=== PATIENT | female | born 2000 | race Two or more races ===

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

== ENCOUNTER 2020-04-19 13:57 | Emergency (ER) | payer OTHER ==
[~2020-04-19] VITALS: Ht 167.6 cm; Wt 60.3 kg
== END 2020-04-19 19:15 | disposition home or self-care (01) ==
LOC: ER 13:57 → EMR PED 14:17
DX: U07.1 COVID-19 (principal); J06.9 Acute upper respiratory infection, unspecified

== ENCOUNTER 2020-04-30 12:02 | Outpatient (CLI) | payer OTHER | END 2020-04-30 16:43 | disposition home or self-care (01) | LOC: RAD 12:02 | PROVIDERS: ATTEND Orthopaedic Surgery | DX: M54.5 Low back pain (principal) ==

== ENCOUNTER 2020-05-09 13:49 | Outpatient (CLI) | payer OTHER | END 2020-05-09 14:59 | disposition home or self-care (01) | LOC: MRI 13:49 | PROVIDERS: ATTEND Orthopaedic Surgery | DX: M54.5 Low back pain (principal) | CPT/HCPCS: 72148 ==

== ENCOUNTER 2022-02-05 12:18 | Outpatient (CLI) | payer OTHER | END 2022-02-05 12:21 | disposition home or self-care (01) | LOC: SONOGRAMA 12:18 | PROVIDERS: ATTEND Obstetrics & Gynecology | DX: N93.9 Abnormal uterine and vaginal bleeding, unspecified (principal) ==

== ENCOUNTER 2022-03-22 11:24 | Outpatient (CLI) | payer OTHER | END 2022-03-22 11:25 | disposition home or self-care (01) | LOC: LAB 11:24 | PROVIDERS: ATTEND Internal Medicine Nephrology | DX: I10 Essential (primary) hypertension (principal); N18.2 Chronic kidney disease, stage 2 (mild); R80.9 Proteinuria, unspecified; M32.10 Systemic lupus erythematosus, organ or system involvement unspecified; N28.9 Disorder of kidney and ureter, unspecified ==

== ENCOUNTER 2022-04-19 15:29 | Outpatient (CLI) | payer OTHER | END 2022-04-19 15:34 | disposition home or self-care (01) | LOC: LAB 15:29 | PROVIDERS: ATTEND Orthopaedic Surgery | DX: E56.1 Deficiency of vitamin K (principal) ==

== ENCOUNTER 2022-04-27 08:33 | Outpatient (CLI) | payer OTHER | END 2022-04-27 09:14 | disposition home or self-care (01) | LOC: MRI 08:33 | PROVIDERS: ATTEND Orthopaedic Surgery | DX: S93.491D Sprain of other ligament of right ankle, subsequent encounter (principal); M76.71 Peroneal tendinitis, right leg | CPT/HCPCS: 73718 ==

== ENCOUNTER → 2022-05-26 07:59 | Outpatient (CLI) | payer OTHER | END | disposition home or self-care (01) | LOC: LAB 07:59 | PROVIDERS: ATTEND Internal Medicine Nephrology | DX: M06.4 Inflammatory polyarthropathy (principal); M50.90 Cervical disc disorder, unspecified, unspecified cervical region; M35.9 Systemic involvement of connective tissue, unspecified; M32.14 Glomerular disease in systemic lupus erythematosus; N28.9 Disorder of kidney and ureter, unspecified; M32.19 Other organ or system involvement in systemic lupus erythematosus; D51.3 Other dietary vitamin B12 deficiency anemia; E55.9 Vitamin D deficiency, unspecified; E78.5 Hyperlipidemia, unspecified; D50.9 Iron deficiency anemia, unspecified; N18.2 Chronic kidney disease, stage 2 (mild); R80.9 Proteinuria, unspecified; C78.5 Secondary malignant neoplasm of large intestine and rectum; Z12.11 Encounter for screening for malignant neoplasm of colon; D64.9 Anemia, unspecified; E03.8 Other specified hypothyroidism; N95.1 Menopausal and female climacteric states; I10 Essential (primary) hypertension; C51.9 Malignant neoplasm of vulva, unspecified; N30.00 Acute cystitis without hematuria; E83.51 Hypocalcemia; A64 Unspecified sexually transmitted disease; N39.0 Urinary tract infection, site not specified; R97.8 Other abnormal tumor markers; R79.89 Other specified abnormal findings of blood chemistry; A60.9 Anogenital herpesviral infection, unspecified ==

== ENCOUNTER → 2022-08-30 11:38 | Outpatient (CLI) | payer OTHER | END | disposition home or self-care (01) | LOC: LAB 11:38 | PROVIDERS: ATTEND Specialist | DX: I10 Essential (primary) hypertension (principal); N18.9 Chronic kidney disease, unspecified; M06.4 Inflammatory polyarthropathy; M50.90 Cervical disc disorder, unspecified, unspecified cervical region; M35.9 Systemic involvement of connective tissue, unspecified ==

== ENCOUNTER 2022-12-17 10:38 | Outpatient (CLI) | payer OTHER ==
[2022-12-17 11:46] LABS: HEMATOCRIT 31.5 % (36.0-45.00); HEMOGLOBIN 10.7 g/dL (12.0-15.00); MEAN CELL VOLUME 91.1 fL (80.00-100.00); MEAN CORPUSCULAR HEMOGLOBIN 30.8 pg (27.00-32.0); MEAN CORPUSCULAR HGB CONC 33.8 g/dl (32.0-36.0); PLATELET COUNT 379 K/uL (150-450); RED BLOOD COUNT 3.46 M/uL (4.00-6.00); RED CELL DISTRIBUTION WIDTH 13.9 % (11.5-14.5)
[2022-12-17 11:58] LABS: ERYTHROCYTE SEDIMENTATION RATE 28 mm/hr
[2022-12-17 12:21] LABS: ALBUMIN 1.7 gm/dL (3.4-5.0); ALKALINE PHOSPHATASE 51 U/L (50-136); ALT/SGPT 21 U/L (12-78); ANION GAP 5 (10.0-20.0); AST/SGOT 19 U/L (15-37); BILIRUBIN TOTAL < 0.10 mg/dL (0.3-1.2); BLOOD UREA NITROGEN 12 mg/dL (7-18); BUN CREA RATIO 27 (7.0-25.0); C-REACTIVE PROTEIN < 0.29 MG/DL (0.00-0.29); CALCIUM 7.6 mg/dL (8.5-10.1); CARBON DIOXIDE 33 mEq/L (21-32); CHLORIDE 110 mmol/L (98-107); CHOL HDL RATIO 2.8 (0-5.0); CHOLESTEROL 182 mg/dL (0-200); CREATININE SERUM 0.45 mg/dL (0.55-1.02); FERRITIN 23.7 NG/ML (8-252); GFR 174.23; GLOBULINA 2.7 G/DL (2.4-3.5); GLUCOSE FASTING 86 mg/dL (65-100); HDL 64 mg/dl (40-60); LDL 97 mg/dl (0-130); OSMOLALITY SERUM 286 MOSM/KG (275-295); POTASSIUM 3.53 mEq/L (3.5-5.1); SODIUM 144 mmol/L (136-145); TOTAL IRON BINDING CAPACITY 234 ug/dl (250-450); TOTAL PROTEIN 4.4 gm/dL (6.4-8.2); TRIGLYCERIDES 107 mg/dL (0-150); VLDL 21 (0-39)
[2022-12-17 12:21] LABS: PH,URINE 5.5 (5.0-8.0); URINE APPEARANCE Cloudy; URINE BILIRRUBIN Negative (NEGATIVE); URINE BLOOD Small; URINE COLOR Yellow; URINE GLUCOSE Negative (NEGATIVE); URINE LEUKOCYTE Negative; URINE NITRATE Negative; URINE UROBILINOGEN 0.2 E.U./dl
[2022-12-17 12:26] LABS: URINE BACTERIA 2531.2 uL (0.0-1933); URINE EPITHELIAL CELLS 63.3 uL (0.0-38.8); URINE RBC 43.6 uL (0.0-20.8); URINE WBC 46.9 uL (0.0-23.2)
[2022-12-17 12:40] LABS: VITAMIN D3 25 HYDROXY 30.07 ng/ml (30-120)
[2022-12-17 12:50] LABS: URINE PROTEIN 300 (NEGATIVE)
== END 2022-12-17 10:45 | disposition home or self-care (01) ==
LOC: LAB 10:38
PROVIDERS: ATTEND Specialist
DX: M32.10 Systemic lupus erythematosus, organ or system involvement unspecified (principal); N28.9 Disorder of kidney and ureter, unspecified; D51.3 Other dietary vitamin B12 deficiency anemia; E03.9 Hypothyroidism, unspecified; E55.9 Vitamin D deficiency, unspecified; E78.5 Hyperlipidemia, unspecified; Z91.040 Latex allergy status

== ENCOUNTER 2023-03-04 10:26 | Outpatient (CLI) | payer OTHER ==
[2023-03-04 11:42] LABS: PH,URINE 6.5 (5.0-8.0); URINE APPEARANCE Clear; URINE BILIRRUBIN Negative (NEGATIVE); URINE BLOOD Trace; URINE COLOR Yellow; URINE GLUCOSE Negative (NEGATIVE); URINE LEUKOCYTE Negative; URINE NITRATE Negative
[2023-03-04 11:46] LABS: URINE BACTERIA 483.8 uL (0.0-1933); URINE EPITHELIAL CELLS 16.6 uL (0.0-38.8); URINE RBC 12.6 uL (0.0-20.8); URINE WBC 14.2 uL (0.0-23.2)
[2023-03-04 11:46] LABS: HEMATOCRIT 29.1 % (36.0-45.00); MEAN CELL VOLUME 89.6 fL (80.00-100.00); MEAN CORPUSCULAR HGB CONC 34.6 g/dl (32.0-36.0); PLATELET COUNT 333 K/uL (150-450); RED BLOOD COUNT 3.25 M/uL (4.00-6.00); RED CELL DISTRIBUTION WIDTH 13.8 % (11.5-14.5)
[2023-03-04 11:47] LABS: HEMOGLOBIN 10.1 g/dL (12.0-15.00)
[2023-03-04 11:51] LABS: ERYTHROCYTE SEDIMENTATION RATE 14 mm/hr
[2023-03-04 11:52] LABS: URINE PROTEIN 300 (NEGATIVE)
[2023-03-04 12:15] LABS: ALBUMIN 2.1 gm/dL (3.4-5.0); ALKALINE PHOSPHATASE 43 U/L (50-136); ALT/SGPT 20 U/L (12-78); ANION GAP 6 (10.0-20.0); AST/SGOT 21 U/L (15-37); BILIRUBIN TOTAL 0.19 mg/dL (0.3-1.2); BLOOD UREA NITROGEN 15 mg/dL (7-18); BUN CREA RATIO 33 (7.0-25.0); CALCIUM 7.9 mg/dL (8.5-10.1); CARBON DIOXIDE 28 mEq/L (21-32); CHLORIDE 112 mmol/L (98-107); CHOL HDL RATIO 2.4 (0-5.0); CHOLESTEROL 135 mg/dL (0-200); CREATININE SERUM 0.45 mg/dL (0.55-1.02); GFR 174.23; GLOBULINA 2.5 G/DL (2.4-3.5); GLUCOSE FASTING 85 mg/dL (65-100); HDL 57 mg/dl (40-60); LDL 68 mg/dl (0-130); OSMOLALITY SERUM 283 MOSM/KG (275-295); PHOSPHOROUS 3.7 mg/dL (2.5-4.9); POTASSIUM 3.82 mEq/L (3.5-5.1); SODIUM 142 mmol/L (136-145); TOTAL IRON BINDING CAPACITY 272 ug/dl (250-450); TOTAL PROTEIN 4.6 gm/dL (6.4-8.2); TRIGLYCERIDES 51 mg/dL (0-150); VLDL 10 (0-39)
[2023-03-04 12:28] LABS: C-REACTIVE PROTEIN < 0.29 MG/DL (0.00-0.29)
[2023-03-04 12:32] LABS: URIC ACID 4.6 mg/dL (2.5-7.5)
== END 2023-03-04 10:36 | disposition home or self-care (01) ==
LOC: LAB 10:26
PROVIDERS: ATTEND Specialist
DX: D50.9 Iron deficiency anemia, unspecified (principal); N28.9 Disorder of kidney and ureter, unspecified; E78.5 Hyperlipidemia, unspecified; I10 Essential (primary) hypertension; R80.9 Proteinuria, unspecified

== ENCOUNTER 2023-05-05 09:16 | Outpatient (CLI) | payer OTHER | END 2023-05-05 09:17 | disposition home or self-care (01) | LOC: NUCLEAR 09:16 | PROVIDERS: ATTEND Specialist | DX: I87.303 Chronic venous hypertension (idiopathic) without complications of bilateral lower extremity (principal); M06.9 Rheumatoid arthritis, unspecified; M35.9 Systemic involvement of connective tissue, unspecified; M32.14 Glomerular disease in systemic lupus erythematosus; M32.10 Systemic lupus erythematosus, organ or system involvement unspecified ==

== ENCOUNTER 2023-05-19 08:33 | Outpatient (CLI) | payer OTHER ==
[2023-05-19 10:19] LABS: HEMATOCRIT 33.1 % (36.0-45.00); HEMOGLOBIN 11.4 g/dL (12.0-15.00); MEAN CELL VOLUME 88.6 fL (80.00-100.00); MEAN CORPUSCULAR HEMOGLOBIN 30.6 pg (27.00-32.0); MEAN CORPUSCULAR HGB CONC 34.6 g/dl (32.0-36.0); PLATELET COUNT 412 K/uL (150-450); RED BLOOD COUNT 3.74 M/uL (4.00-6.00); RED CELL DISTRIBUTION WIDTH 13.9 % (11.5-14.5)
[2023-05-19 10:22] LABS: URINE APPEARANCE Clear; URINE BILIRRUBIN Negative (NEGATIVE); URINE BLOOD Small; URINE COLOR Yellow; URINE GLUCOSE Negative (NEGATIVE); URINE LEUKOCYTE Negative; URINE NITRATE Negative; URINE UROBILINOGEN 0.2 E.U./dl
[2023-05-19 10:24] LABS: ERYTHROCYTE SEDIMENTATION RATE 28 mm/hr
[2023-05-19 10:26] LABS: URINE BACTERIA 851.7 uL (0.0-1933); URINE EPITHELIAL CELLS 19.9 uL (0.0-38.8); URINE RBC 18.6 uL (0.0-20.8)
[2023-05-19 10:32] LABS: URINE PROTEIN 300 (NEGATIVE)
[2023-05-19 10:44] LABS: ALBUMIN 2.8 gm/dL (3.4-5.0); ALKALINE PHOSPHATASE 44 U/L (50-136); ALT/SGPT 19 U/L (12-78); ANION GAP 2 (10.0-20.0); AST/SGOT 16 U/L (15-37); BLOOD UREA NITROGEN 12 mg/dL (7-18); BUN CREA RATIO 24 (7.0-25.0); CALCIUM 8.8 mg/dL (8.5-10.1); CARBON DIOXIDE 31 mEq/L (21-32); CHLORIDE 106 mmol/L (98-107); CREATININE SERUM 0.51 mg/dL (0.55-1.02); GFR 150.79; GLUCOSE FASTING 77 mg/dL (65-100); OSMOLALITY SERUM 271 MOSM/KG (275-295); PHOSPHOROUS 4.1 mg/dL (2.5-4.9); POTASSIUM 3.48 mEq/L (3.5-5.1); SODIUM 136 mmol/L (136-145); TOTAL IRON BINDING CAPACITY 287 ug/dl (250-450); TOTAL PROTEIN 5.8 gm/dL (6.4-8.2)
[2023-05-19 10:48] LABS: C-REACTIVE PROTEIN < 0.29 MG/DL (0.00-0.29)
[2023-05-19 12:16] LABS: VITAMIN D3 25 HYDROXY 27.05 ng/ml (30-120)
[2023-05-20 09:12] LABS: COMPLEMENT C3 114 mg/dL (82-167); COMPLEMENT C4 25 mg/dL (12-38)
[2023-05-20 13:07] LABS: rnp 1.1 AI (0.0-0.9); smith ab > 8.0 AI (0.0-0.9)
== END 2023-05-19 13:37 | disposition home or self-care (01) ==
LOC: LAB 08:33
PROVIDERS: ATTEND Specialist
DX: M32.10 Systemic lupus erythematosus, organ or system involvement unspecified (principal); D50.9 Iron deficiency anemia, unspecified; D51.3 Other dietary vitamin B12 deficiency anemia; E55.9 Vitamin D deficiency, unspecified; N28.9 Disorder of kidney and ureter, unspecified; I10 Essential (primary) hypertension; M06.4 Inflammatory polyarthropathy; M50.90 Cervical disc disorder, unspecified, unspecified cervical region; M35.9 Systemic involvement of connective tissue, unspecified

== ENCOUNTER 2023-05-19 09:33 | Outpatient (CLI) | payer OTHER | END 2023-05-19 09:37 | disposition home or self-care (01) | LOC: SONOGRAMA 09:33 | PROVIDERS: ATTEND Specialist | DX: M32.10 Systemic lupus erythematosus, organ or system involvement unspecified (principal); M06.9 Rheumatoid arthritis, unspecified; N28.9 Disorder of kidney and ureter, unspecified; I10 Essential (primary) hypertension; Z91.040 Latex allergy status ==

== ENCOUNTER 2023-10-17 14:17 | Outpatient (CLI) | payer OTHER | END 2023-10-17 14:21 | disposition home or self-care (01) | LOC: RAD 14:17 | PROVIDERS: ATTEND Specialist | DX: M51.36 Other intervertebral disc degeneration, lumbar region (principal); M35.9 Systemic involvement of connective tissue, unspecified; M32.14 Glomerular disease in systemic lupus erythematosus; M32.10 Systemic lupus erythematosus, organ or system involvement unspecified; M50.90 Cervical disc disorder, unspecified, unspecified cervical region ==

== ENCOUNTER 2023-11-02 10:45 | Outpatient (CLI) | payer OTHER ==
[2023-11-02 12:08] LABS: HEMATOCRIT 29.1 % (36.0-45.00); HEMOGLOBIN 10.3 g/dL (12.0-15.00); MEAN CELL VOLUME 92.4 fL (80.00-100.00); MEAN CORPUSCULAR HEMOGLOBIN 32.7 pg (27.00-32.0); MEAN CORPUSCULAR HGB CONC 35.4 g/dl (32.0-36.0); PLATELET COUNT 361 K/uL (150-450); RED BLOOD COUNT 3.15 M/uL (4.00-6.00); RED CELL DISTRIBUTION WIDTH 12.8 % (11.5-14.5)
[2023-11-02 12:12] LABS: URINE APPEARANCE Clear; URINE BILIRRUBIN Negative (NEGATIVE); URINE BLOOD Moderate; URINE COLOR Yellow; URINE GLUCOSE Negative (NEGATIVE); URINE KETONE Negative (NEGATIVE); URINE LEUKOCYTE Trace; URINE NITRATE Negative; URINE PROTEIN 30 (NEGATIVE); URINE UROBILINOGEN 0.2 E.U./dl
[2023-11-02 12:16] LABS: URINE BACTERIA 1981.9 uL (0.0-1933); URINE CAST 1.52 uL (0.0-1.40); URINE EPITHELIAL CELLS 40.1 uL (0.0-38.8); URINE RBC 44.8 uL (0.0-20.8); URINE WBC 32.6 uL (0.0-23.2)
[2023-11-02 12:20] LABS: ERYTHROCYTE SEDIMENTATION RATE 7 mm/hr
[2023-11-02 12:38] LABS: ALBUMIN 3.3 gm/dL (3.4-5.0); ALKALINE PHOSPHATASE 38 U/L (50-136); ALT/SGPT 16 U/L (12-78); ANION GAP 7 (10.0-20.0); AST/SGOT 14 U/L (15-37); BILIRUBIN TOTAL 0.33 mg/dL (0.3-1.2); BLOOD UREA NITROGEN 14 mg/dL (7-18); BUN CREA RATIO 26 (7.0-25.0); CALCIUM 9.3 mg/dL (8.5-10.1); CARBON DIOXIDE 30 mEq/L (21-32); CHLORIDE 109 mmol/L (98-107); CHOL HDL RATIO 2.7 (0-5.0); CHOLESTEROL 143 mg/dL (0-200); CREATININE SERUM 0.54 mg/dL (0.55-1.02); GLOBULINA 2.7 G/DL (2.4-3.5); GLUCOSE FASTING 78 mg/dL (65-100); HDL 53 mg/dl (40-60); LDL 79 mg/dl (0-130); OSMOLALITY SERUM 282 MOSM/KG (275-295); POTASSIUM 3.69 mEq/L (3.5-5.1); SODIUM 142 mmol/L (136-145); TRIGLYCERIDES 56 mg/dL (0-150); VLDL 11 (0-39)
[2023-11-02 12:46] LABS: C-REACTIVE PROTEIN < 0.29 MG/DL (0.00-0.29)
[2023-11-02 13:11] LABS: VITAMIN D3 25 HYDROXY 37.4 ng/ml (30-120)
[2023-11-04 07:07] LABS: COMPLEMENT C3 106 mg/dL (82-167); COMPLEMENT C4 22 mg/dL (12-38)
[2023-11-04 15:11] LABS: DNA AB DOUBLE STRABDED 63 IU/mL (0-9); rnp 0.6 AI (0.0-0.9); smith ab > 8.0 AI (0.0-0.9)
== END 2023-11-02 10:50 | disposition home or self-care (01) ==
LOC: LAB 10:45
PROVIDERS: ATTEND Specialist
DX: D50.9 Iron deficiency anemia, unspecified (principal); N18.9 Chronic kidney disease, unspecified; D51.3 Other dietary vitamin B12 deficiency anemia; E55.9 Vitamin D deficiency, unspecified; E78.5 Hyperlipidemia, unspecified; M06.4 Inflammatory polyarthropathy; M50.90 Cervical disc disorder, unspecified, unspecified cervical region; M35.9 Systemic involvement of connective tissue, unspecified; M32.14 Glomerular disease in systemic lupus erythematosus; M32.10 Systemic lupus erythematosus, organ or system involvement unspecified; E16.2 Hypoglycemia, unspecified